=== PATIENT | female | born 1985 | race African-American/Black ===

== ENCOUNTER 2019-08-13 18:43 | Emergency (ER) | payer OTHER ==
[~2019-08-13] VITALS: Ht 170.2 cm; Wt 90.3 kg
[2019-08-13 18:50] VITALS: BP 164/101
[2019-08-13] MEDS ORDERED: SULF1TAB24 PO (19:17)
--- NOTE | 2019-08-13 19:17 | PHYS DOC ---
Adult General Chief Complaint Chief Complaint: SKIN PROBLEM HPI HPI Patient is a 34-year-old female who presents with complaint of tender, swollen area on her right lower abdomen. Patient states that it started about 9 days ago when she was seen at [facility] and was told to use warm compre sses. She states that she was later seen at the [place] and they gave the same instructions. Patient has not been given a prescription for antibiotics. She states that yesterday she said first started noticing some drainage to the area and there was a lot of purulent fluid initially coming from it. She states that today she had taken the Band-Aid off and she noticed a hole that had not been there before. She states that it continues to have purulent drainage mixed with blood. She denies any fever.[] Review of Systems Review of Systems Constitutional: Denies fever or chills [] Respiratory: Denies cough or shortness of breath [] Cardiovascular: No additional information not addressed in HPI [] Integument: Positive abscess[] Neurologic: Denies headache, focal weakness or sensory changes [] Allergies Allergies Allergies Coded Allergies Type Severity Reaction Last Updated Verified No Known Drug Allergies 08/13/19 No Physical Exam Physical Exam Constitutional: Well developed, well nourished, no acute distress, non-toxic appearance. [] Cardiovascular:Heart rate regular rhythm, no murmur [] Lungs & Thorax: Bilateral breath sounds clear to auscultation [] Skin: Right lower abdomen demonstrates area of redness, tenderness and warmth along with central fluctuance. Pressure over the wound demonstrated purulent drainage mixed with blood. As much drainage as possible was expressed and Band- Aid replaced over wound. [] Neurologic: Alert and oriented X 3, no focal deficits noted. [] EKG EKG [] Radiology/Procedures Radiology/Procedures [] Course & Med Decision Making Course & Med Decision Making Pertinent Labs and Imaging studies reviewed. (See chart for details) Abscess was freely draining. No incision necessary for drainage. Dragon Disclaimer Dragon Disclaimer This electronic medical record was generated, in whole or in part, using a voice recognition dictation system. Departure Departure: Impression: Primary Impression: Abscess Disposition: 01 HOME, SELF-CARE Condition: STABLE Referrals: REBECCA RODNEY MD (PCP) Patient Instructions: Abscess Scripts Sulfamethoxazole/Trimethoprim (BACTRIM DS TABLET) 1 Each Tablet 1 TAB PO BID for infection for 10 Days, #20 TAB 0 Refills Prov: APRIL CLAIRE Jr. DO 08/13/19 APRIL CLAIRE Jr. DO Aug 13, 2019 19:17
== END 2019-08-13 19:20 | disposition home or self-care (01) ==
LOC: ER 18:43
DX: L02.211 Cutaneous abscess of abdominal wall (principal)
CPT/HCPCS: 99283